=== PATIENT | female | born 1995 | race Caucasian/White ===

== ENCOUNTER 2024-04-10 09:27 | Outpatient (CLI) | payer BC, SELFPAY ==
--- NOTE | ~2024-04-10 | US_ITS ---
EXAMINATION: US pelvic complete DATE: 04/10/2024 09:45 INDICATION: Postcoital pain and contact bleeding TECHNIQUE: Multiple transabdominal sonographic images of the pelvis were obtained. COMPARISON: None. FINDINGS: The uterus measures 9.3 x 3.1 x 5.2 cm. The endometrial complex measures 3 mm in thickness. The righ t ovary measures 3.1 x 2.1 x 1.9 cm. The left ovary measures 7.2 x 5.1 x 6.6 cm. Inclusive of 5.9 x 5 .0 x 4.3 cm anechoic cyst in the left ovary. 1.7 cm cyst/follicle in the right ovary. Vascular flow i dentified at both ovaries on color Doppler. There is normal vascular flow in the ovaries. There is no free fluid in the pelvis. IMPRESSION: 1. 5.9 cm left ovarian cyst and 1.7 cm cyst/follicle at the right ovary. Otherwise normal pelvic ultr asound. Reviewed, dictated and finalized at [facility]. [facility] IMPRESSION: 1. 5.9 cm left ovarian cyst and 1.7 cm cyst/follicle at the right ovary. Otherw ise normal pelvic ultrasound.
== END 2024-04-10 09:28 | disposition home or self-care (01) ==
PROVIDERS: PCP Nurse Practitioner Women's Health; Visit Provider Nurse Practitioner Women's Health
DX: N83.202 Unspecified ovarian cyst, left side (principal); N83.201 Unspecified ovarian cyst, right side; N93.0 Postcoital and contact bleeding
CPT/HCPCS: 76856

== ENCOUNTER 2024-08-21 09:25 | Outpatient (CLI) | payer BC, SELFPAY ==
--- NOTE | ~2024-08-21 | US_ITS ---
Pelvic ultrasound. Clinical History: Ovarian cyst COMPARISON: 04/10/2024 Technique: Realtime transabdominal scanning of the pelvis was performed. Color flow Doppler and Doppl er spectral analysis were performed. Findings: The uterus is anteverted, and measures 8.5 x 3.7 x 5.7 cm. The endometrial stripe has a th ickness of 6 mm. No focal mass is identified. The right ovary measures 3.2 x 5.2 x 3.2 cm. Simple right ovarian cyst measures 4.0 x 3.1 x 3.4 cm. The left ovary measures 3.3 x 1.4 x 2.6 cm. No significant left ovarian or adnexal mass is seen. There is no evidence of free fluid in the cul de sac. Impression: 4.0 x 3.1 x 3.4 cm simple right ovarian cyst. Previously noted left ovarian cyst is resolved. Reviewed, dictated and finalized at [facility]. Impression: 4.0 x 3.1 x 3.4 cm simple right ovarian cyst. Previously noted left ovarian cyst is resolved.
== END 2024-08-21 09:26 | disposition home or self-care (01) ==
LOC: MICIMG 09:25
PROVIDERS: PCP Obstetrics & Gynecology Gynecology; Visit Provider Obstetrics & Gynecology Gynecology
DX: N83.201 Unspecified ovarian cyst, right side (principal); N83.202 Unspecified ovarian cyst, left side
CPT/HCPCS: 76856